=== PATIENT | male | born 1945 | race Caucasian/White ===

== ENCOUNTER 2021-08-18 19:14 | Inpatient (IN) | payer OTHER ==
[2021-08-18 19:25] VITALS: BMI 26.6
[2021-08-18 21:20] LABS: BASO % 0.4 % (0-2.0); CALCIUM 9.3 mg/dL (8.5-10.1); EOS % 2.5 % (0-4.5); HEMATOCRIT 44.9 % (35.4-49); HEMOGLOBIN 15.4 GM/dL (11.7-16.9); LYMPH % 17.3 % (8-40); MCH 33.8 pg (25.7-33.7); MCHC 34.4 g/dl (32.0-35.9); MEAN CELL VOLUME 98.2 fl (80-96); MEAN PLT VOLUME 9.4 fl (7.5-11.1); MONO % 8.4 % (3.8-10.2); NEUT % 71.4 % (42.8-82.8); PLATELET COUNT 222 10^3/uL (134-434); RBC 4.57 M/mm3 (4.00-5.60); RDW 12.7 % (11.9-15.9); WHITE BLOOD COUNT 7.9 K/mm3 (4.0-10.0)
[2021-08-18 21:21] LABS: ALBUMIN 4.4 g/dl (3.4-5.0)
[2021-08-18 21:25] LABS: CREATININE 0.9 mg/dL (0.55-1.3)
[2021-08-18 21:26] LABS: BILIRUBIN,TOTAL 0.9 mg/dL (0.2-1)
[2021-08-18] MEDS ORDERED: amLODIPine BESYLATE 10 MG TABLET (FP) PO ONE (21:50)
[2021-08-18] MEDS ORDERED: TIMOLOL MALEATE 0.5% GFS OPHTHALMIC SOLN 5 ML BOTTLE OD SCH (22:00)
[2021-08-18] MEDS ORDERED: amLODIPine BESYLATE 10 MG TABLET (FP) ONE (22:49)
[2021-08-18] MEDS ORDERED: hydrALAZINE HCL 25 MG TABLET (FP) ONE (22:49)
[2021-08-18] MEDS ORDERED: ATORVASTATIN CA 10 MG TABLET (FP) ONE (22:50)
[2021-08-18] MEDS: hydrALAZINE HCL 25 MG TABLET (FP) PO SCH (22:56)
[2021-08-18] MEDS: DORZOLAMIDE 2% HCL OPHTHALMIC SOLUTION 10 ML BOTTLE OU SCH (22:56)
[2021-08-18] MEDS: ATORVASTATIN CA 10 MG TABLET (FP) PO SCH (22:56)
[2021-08-18] MEDS: TIMOLOL 0.5% OPHTHALMIC SOL 5 ML BOTTLE OD SCH (22:56)
[2021-08-19] MEDS ORDERED: MELATONIN 5 MG TABLETS PO SCH (01:45)
[2021-08-19] MEDS: hydrALAZINE HCL 25 MG TABLET (FP) PO SCH ×2 (06:35→13:30)
[2021-08-19] MEDS ORDERED: ATROPINE SULFATE 1 MG/10 ML DISP.SYRIN IVPUSH SCH (07:00)
[2021-08-19] MEDS: DORZOLAMIDE 2% HCL OPHTHALMIC SOLUTION 10 ML BOTTLE OU SCH ×2 (09:39→21:41)
[2021-08-19] MEDS: TIMOLOL 0.5% OPHTHALMIC SOL 5 ML BOTTLE OD SCH ×2 (09:40→21:40)
[2021-08-19] MEDS: LISINOPRIL 10 MG TABLET PO SCH (09:51)
[2021-08-19] MEDS: SODIUM CHLORIDE NASAL SPRAY 44 ML BOTTLE NS PRN (16:31)
[2021-08-19] MEDS: hydrALAZINE HCL 10 MG TABLET PO SCH (17:33)
[2021-08-19] MEDS ORDERED: RIVAROXABAN 20 MG TABLET PO SCH ×2 (18:00)
[2021-08-19] MEDS: MELATONIN 5 MG TABLETS PO SCH (21:40)
[2021-08-19] MEDS: ATORVASTATIN CA 10 MG TABLET (FP) PO SCH (21:40)
[2021-08-20] MEDS: MELATONIN 5 MG TABLETS PO SCH (00:16)
[2021-08-20] MEDS: hydrALAZINE HCL 10 MG TABLET PO SCH ×4 (00:16→17:32)
[2021-08-20] MEDS: SODIUM CHLORIDE NASAL SPRAY 44 ML BOTTLE NS PRN (06:14)
[2021-08-20 07:08] LABS: BASO % 0.4 % (0-2.0); EOS % 3.5 % (0-4.5); HEMATOCRIT 42.7 % (35.4-49); HEMOGLOBIN 14.6 GM/dL (11.7-16.9); LYMPH % 22.9 % (8-40); MCH 34.3 pg (25.7-33.7); MCHC 34.1 g/dl (32.0-35.9); MEAN CELL VOLUME 100.5 fl (80-96); MONO % 10.6 % (3.8-10.2); NEUT % 62.6 % (42.8-82.8); PLATELET COUNT 194 10^3/uL (134-434); RBC 4.25 M/mm3 (4.00-5.60); RDW 12.5 % (11.9-15.9); WHITE BLOOD COUNT 8.3 K/mm3 (4.0-10.0)
[2021-08-20] MEDS: LISINOPRIL 10 MG TABLET PO SCH (09:19)
[2021-08-20] MEDS: DORZOLAMIDE 2% HCL OPHTHALMIC SOLUTION 10 ML BOTTLE OU SCH ×3 (09:21→21:46)
[2021-08-20] MEDS ORDERED: SODIUM CHLORIDE NASAL SPRAY 44 ML BOTTLE NS PRN (09:34)
[2021-08-20] MEDS ORDERED: LISINOPRIL 10 MG TABLET PO SCH ×2 (10:00→14:52)
[2021-08-20] MEDS: TIMOLOL 0.5% OPHTHALMIC SOL 5 ML BOTTLE OD SCH ×2 (10:27→21:46)
[2021-08-20] MEDS: MUPIROCIN 2% TOPICAL OINTMENT FOR DECOLONIZATION NS SCH ×2 (10:38→21:45)
[2021-08-20] MEDS: busPIRone HCL 10 MG TABLET (FP) PO SCH ×2 (13:14→21:45)
[2021-08-20] MEDS ORDERED: HEPARIN NA (PORCINE) 5,000 UNITS/ML 1ML VIAL SQ SCH (14:00)
[2021-08-20] MEDS ORDERED: ATROPINE SULFATE 1 MG/10 ML DISP.SYRIN IVPUSH PRN (18:19)
[2021-08-20] MEDS ORDERED: ATORVASTATIN CA 10 MG TABLET (FP) PO SCH (22:00)
[2021-08-20] MEDS ORDERED: CHLORHEXIDINE GLUCONATE 4% CLEANSER FOR DECOLONIZATION TP SCH (22:00)
[2021-08-20] MEDS ORDERED: MELATONIN 5 MG TABLETS PO SCH (22:00)
[2021-08-21] MEDS: hydrALAZINE HCL 10 MG TABLET PO SCH ×4 (00:19→17:22)
[2021-08-21] MEDS ORDERED: CEFAZOLIN SODIUM 2 GM in DEXTROSE 5%-WATER 100 ML IVPB ONE (06:00)
[2021-08-21] MEDS ORDERED: ceFAZolin 2 GRAM PREMIX BAG IVPB ONE (06:00)
[2021-08-21 07:00] LABS: BASO % 0.4 % (0-2.0); EOS % 2.7 % (0-4.5); HEMATOCRIT 45.4 % (35.4-49); HEMOGLOBIN 15.6 GM/dL (11.7-16.9); LYMPH % 17.1 % (8-40); MCH 34.2 pg (25.7-33.7); MCHC 34.3 g/dl (32.0-35.9); MEAN CELL VOLUME 99.5 fl (80-96); MEAN PLT VOLUME 9.1 fl (7.5-11.1); MONO % 9.9 % (3.8-10.2); NEUT % 69.9 % (42.8-82.8); PLATELET COUNT 197 10^3/uL (134-434); RBC 4.56 M/mm3 (4.00-5.60); RDW 12.8 % (11.9-15.9)
[2021-08-21 07:11] LABS: INR 1.21 (0.83-1.09); PROTHROMBIN TIME (PATIENT) 13.9 SEC (9.7-13.0)
[2021-08-21 07:18] LABS: CALCIUM 9.1 mg/dL (8.5-10.1)
[2021-08-21 07:19] LABS: BLOOD UREA NITROGEN 14.5 mg/dL (7-18); MAGNESIUM 2.3 mg/dL (1.8-2.4)
[2021-08-21 07:22] LABS: CREATININE 0.9 mg/dL (0.55-1.3); PHOSPHOROUS 4.3 mg/dL (2.5-4.9)
[2021-08-21] MEDS ORDERED: LIDOCAINE HCL 1%, 10 MG/ML (20ML VIAL) ONE (07:30)
[2021-08-21] MEDS ORDERED: BUPIVACAINE HCL/PF 0.5% (5MG/ML) 10 ML VIAL ONE (07:30)
[2021-08-21] MEDS ORDERED: ceFAZolin SODIUM 1 GM VIAL ONE (07:31)
[2021-08-21] MEDS ORDERED: ceFAZolin SODIUM 1 GM VIAL IVPB ONE (08:10)
[2021-08-21] MEDS ORDERED: BUPIVACAINE HCL/PF 0.5% (5MG/ML) 10 ML VIAL IJ ONE (08:10)
[2021-08-21] MEDS ORDERED: LIDOCAINE HCL 1%, 10 MG/ML (20ML VIAL) INF ONE (08:10)
[2021-08-21] MEDS ORDERED: SODIUM CHLORIDE NASAL SPRAY 44 ML BOTTLE NS PRN (09:35)
[2021-08-21] MEDS ORDERED: ONDANSETRON 4 MG/2 ML VIAL IVPUSH PRN (09:36)
[2021-08-21] MEDS ORDERED: LACTATED RINGERS SOLUTION 1,000 ML IV SCH (09:45)
[2021-08-21] MEDS: TIMOLOL 0.5% OPHTHALMIC SOL 5 ML BOTTLE OD SCH ×2 (10:00→21:20)
[2021-08-21] MEDS: DORZOLAMIDE 2% HCL OPHTHALMIC SOLUTION 10 ML BOTTLE OU SCH ×2 (10:00→21:18)
[2021-08-21] MEDS ORDERED: MUPIROCIN 2% TOPICAL OINTMENT FOR DECOLONIZATION NS SCH (10:00)
[2021-08-21] MEDS: busPIRone HCL 10 MG TABLET (FP) PO SCH ×2 (12:05→21:18)
[2021-08-21] MEDS: LISINOPRIL 10 MG TABLET PO SCH (12:05)
[2021-08-21] MEDS: MUPIROCIN 2% TOPICAL OINTMENT FOR DECOLONIZATION NS SCH ×2 (12:05→21:20)
[2021-08-21] MEDS ORDERED: RIVAROXABAN 20 MG TABLET PO SCH (18:00)
[2021-08-21] MEDS: ATORVASTATIN CA 10 MG TABLET (FP) PO SCH (21:17)
[2021-08-21] MEDS: MELATONIN 5 MG TABLETS PO SCH (21:17)
[2021-08-21] MEDS: CHLORHEXIDINE GLUCONATE 4% CLEANSER FOR DECOLONIZATION TP SCH ×2 (21:20)
[2021-08-22] MEDS: hydrALAZINE HCL 10 MG TABLET PO SCH ×6 (00:02→23:51)
[2021-08-22 06:46] LABS: BASO % 0.3 % (0-2.0); HEMATOCRIT 44.6 % (35.4-49); HEMOGLOBIN 15.2 GM/dL (11.7-16.9); MCH 33.8 pg (25.7-33.7); MEAN CELL VOLUME 99.5 fl (80-96); MEAN PLT VOLUME 9.3 fl (7.5-11.1); MONO % 8.2 % (3.8-10.2); NEUT % 75.5 % (42.8-82.8); PLATELET COUNT 187 10^3/uL (134-434); RBC 4.48 M/mm3 (4.00-5.60); RDW 12.5 % (11.9-15.9); WHITE BLOOD COUNT 11.1 K/mm3 (4.0-10.0)
[2021-08-22 07:09] LABS: CALCIUM 8.9 mg/dL (8.5-10.1)
[2021-08-22 07:10] LABS: BLOOD UREA NITROGEN 13.4 mg/dL (7-18)
[2021-08-22 07:13] LABS: CREATININE 0.8 mg/dL (0.55-1.3)
[2021-08-22 07:16] LABS: ALBUMIN 3.4 g/dl (3.4-5.0)
[2021-08-22] MEDS: busPIRone HCL 10 MG TABLET (FP) PO SCH ×2 (10:02→21:04)
[2021-08-22] MEDS: MUPIROCIN 2% TOPICAL OINTMENT FOR DECOLONIZATION NS SCH ×2 (10:05→21:06)
[2021-08-22] MEDS: LISINOPRIL 10 MG TABLET PO SCH (10:05)
[2021-08-22] MEDS: TIMOLOL 0.5% OPHTHALMIC SOL 5 ML BOTTLE OD SCH ×2 (10:06→21:05)
[2021-08-22] MEDS: DORZOLAMIDE 2% HCL OPHTHALMIC SOLUTION 10 ML BOTTLE OU SCH ×2 (10:07→21:05)
[2021-08-22] MEDS: RIVAROXABAN 20 MG TABLET PO SCH (17:31)
[2021-08-22] MEDS: MELATONIN 5 MG TABLETS PO SCH (21:03)
[2021-08-22] MEDS: ATORVASTATIN CA 10 MG TABLET (FP) PO SCH (21:04)
[2021-08-22] MEDS: CHLORHEXIDINE GLUCONATE 4% CLEANSER FOR DECOLONIZATION TP SCH ×2 (21:06)
[2021-08-23] MEDS: hydrALAZINE HCL 10 MG TABLET PO SCH ×3 (06:13→18:29)
[2021-08-23 07:57] LABS: BASO % 0.5 % (0-2.0); EOS % 5.5 % (0-4.5); HEMATOCRIT 45.3 % (35.4-49); HEMOGLOBIN 15.6 GM/dL (11.7-16.9); LYMPH % 15.9 % (8-40); MCHC 34.5 g/dl (32.0-35.9); MEAN CELL VOLUME 98.6 fl (80-96); MEAN PLT VOLUME 9.4 fl (7.5-11.1); NEUT % 67.1 % (42.8-82.8); PLATELET COUNT 178 10^3/uL (134-434); RDW 12.7 % (11.9-15.9)
[2021-08-23 08:18] LABS: ALBUMIN 3.5 g/dl (3.4-5.0); BLOOD UREA NITROGEN 14.9 mg/dL (7-18); CALCIUM 9.1 mg/dL (8.5-10.1)
[2021-08-23 08:19] LABS: MAGNESIUM 2.3 mg/dL (1.8-2.4)
[2021-08-23 08:21] LABS: PHOSPHOROUS 3.8 mg/dL (2.5-4.9)
[2021-08-23 08:22] LABS: CREATININE 0.8 mg/dL (0.55-1.3)
[2021-08-23 08:23] LABS: TOT PROT 7.2 g/dl (6.4-8.2)
[2021-08-23] MEDS: TIMOLOL 0.5% OPHTHALMIC SOL 5 ML BOTTLE OD SCH (09:18)
[2021-08-23] MEDS: DORZOLAMIDE 2% HCL OPHTHALMIC SOLUTION 10 ML BOTTLE OU SCH (09:18)
[2021-08-23] MEDS: MUPIROCIN 2% TOPICAL OINTMENT FOR DECOLONIZATION NS SCH (09:22)
[2021-08-23] MEDS: LISINOPRIL 10 MG TABLET PO SCH (09:23)
[2021-08-23] MEDS: busPIRone HCL 10 MG TABLET (FP) PO SCH (09:23)
[2021-08-23 09:28] VITALS: TEMP 97.9
[2021-08-23] MEDS ORDERED: LISINOPRIL 20 MG TABLET PO SCH (11:00)
[2021-08-23 18:13] VITALS: BP 140/95; PULSE 68
[2021-08-23] MEDS: RIVAROXABAN 20 MG TABLET PO SCH (18:29)
== END 2021-08-23 19:40 | disposition home or self-care (01) | DRG 244 ==
LOC: JER 19:14 → JERBED 22:38 → J4W 08-19 01:09 → JICU 08-20 08:49
PROVIDERS: ADMIT Internal Medicine; ATTEND Internal Medicine
PROC: 02H60JZ Insertion of Pacemaker Lead into Right Atrium, Open Approach (ICD-10-PCS; 2021-08-21)
PROC: 0JH604Z Insertion of Pacemaker, Single Chamber into Chest Subcutaneous Tissue and Fascia, Open Approach (ICD-10-PCS; principal; 2021-08-21 07:00)
DX: I48.21 Permanent atrial fibrillation (principal); I44.1 Atrioventricular block, second degree; I10 Essential (primary) hypertension; H40.9 Unspecified glaucoma; E78.5 Hyperlipidemia, unspecified; R26.81 Unsteadiness on feet; G47.00 Insomnia, unspecified; M62.81 Muscle weakness (generalized); I49.8 Other specified cardiac arrhythmias; Z86.73 Personal history of transient ischemic attack (TIA), and cerebral infarction without residual deficits
CPT/HCPCS: 36415; 70450-TC; 71045-TC-FY; 76000-TC-FY; 80048; 80053; 83735; 84100; 84443; 84484; 85025; 85610; 93005; 93010; 93306-TC; 94760; 97116-GP; 97161-GP; 99285-25; C9803-CS; J1644; U0003; U0005